=== PATIENT | female | born 1970 | race Caucasian/White ===

== ENCOUNTER → 2020-03-20 10:52 | Outpatient (CLI) | payer BC, SELFPAY ==
--- NOTE | ~2020-03-20 | XR_ITS ---
EXAMINATION: XR lumbar spine min 4V DATE: 03/20/2020 11:45 INDICATION: Low back pain. Fibromyalgia. TECHNIQUE: 5 views of lumbar spine were obtained. COMPARISON: None. FINDINGS: There is 7 degrees levocurvature of lumbar spine. Vertebral body heights are normal. There is mildly decreased disc height at L2-L3 and moderately decreased disc height at L3-L4 and L4-L5. The re is severe facet joint osteoarthritis in lower lumbar spine. Surgical clips in the right upper quad rant are likely from cholecystectomy. IMPRESSION: 1. Moderate lumbar spondylosis. Reviewed, dictated and finalized at location A.
--- NOTE | ~2020-03-20 | XR_ITS ---
EXAMINATION: XR hand BI arthritis min 3V DATE: 03/20/2020 11:45 INDICATION: Unspecified osteoarthritis TECHNIQUE: Posteroanterior, lateral, and oblique views of the left and of the right hands as well as a ballcatchers view of both hands were obtained. COMPARISON: None. FINDINGS: There is no fracture, dislocation, or subluxation. The bones, soft tissues, and joint space s are normal. IMPRESSION: 1. No acute osseous abnormality. Reviewed, dictated and finalized at location A.
--- NOTE | ~2020-03-20 | XR_ITS ---
EXAMINATION: XR hip BI 2V w AP pelvis DATE: 03/20/2020 11:45 INDICATION: Fibromyalgia. Bilateral hip pain. TECHNIQUE: An anteroposterior view the pelvis and 2 views of each hip were obtained. COMPARISON: None. FINDINGS: There is lumbar levocurvature and moderate spondylosis. No fracture. The hip joint spaces a re normal. IMPRESSION: 1. Normal hip joints. Reviewed, dictated and finalized at location A. IMPRESSION: 1. Normal hip joints.
== END ==
PROVIDERS: PCP Internal Medicine; Visit Provider Internal Medicine
DX: M19.90 Unspecified osteoarthritis, unspecified site (principal); M79.7 Fibromyalgia; M47.896 Other spondylosis, lumbar region
CPT/HCPCS: 72110; 73130; 73521